=== PATIENT | male | born 1940 | race Two or more races ===

== ENCOUNTER 2024-04-11 19:55 | Inpatient (IN) | payer MEDICARE, OTHER ==
[~2024-04-11] VITALS: Ht 165.1 cm; Wt 76.0 kg
[2024-04-11] MEDS ORDERED: CEFEPIME 2GM/50ML NS 50 ML IV ONE (20:30)
[2024-04-11] MEDS: SODIUM CHLORIDE 0.9% 1,000 ML IV ONE ×2 (20:30→23:15)
[2024-04-11 21:13] LABS: Basophils # (auto) 0 10 ^3/uL (0-0.2); Basophils % (auto) 0.2 % (0.0-2.0); Eosinophils # (auto) 0 10 ^3/uL (0-0.8); Eosinophils % (auto) 0.1 % (0.0-7.0); Hematocrit 47.4 % (41.0-53.0); Lymphocytes # (auto) 0.8 10 ^3/uL (0.4-5.4); Lymphocytes % (auto) 4.4 % (10.0-50.0); Mean Corpuscular Hemoglobin 31.7 pg (28.0-32.0); Mean Corpuscular Hgb Conc. 31.6 g/dL (32.0-36.0); Mean Corpuscular Volume 100.4 fL (80.0-100.0); Monocytes # (auto) 1.3 10 ^3/uL (0-1.3); Monocytes % (auto) 7.5 % (0.0-12.0); Neutrophils % (auto) 87.8 % (37.0-80.0); Red Blood Cells 4.72 10^6/uL (4.5-5.90); Red Cell Distribution Width 15.5 % (11.8-14.3); White Blood Cell 17.1 10^3/uL (4.4-10.8)
[2024-04-11 21:22] LABS: Alanine Aminotransferase 12 U/L (7-40); Albumin 3.9 g/dL (3.2-4.8); Alkaline Phosphatase 118 U/L (46-116); Anion Gap 8 (5-15); Aspartate Aminotransferase < 8 U/L (13-40); BUN/Creatinine Ratio 11.8 (10.0-20.0); Bilirubin, Total 0.8 mg/dL (0.2-1.0); Blood Urea Nitrogen 14 mg/dL (9-23); Calcium 8.4 mg/dL (8.7-10.4); Carbon Dioxide 25 mmol/L (20-30); Chloride 109 mmol/L (98-107); Glucose 191 mg/dL (74-106); Potassium 3.4 mmol/L (3.5-5.1); Sodium 142 mmol/L (136-145); Total Protein 6.7 g/dL (5.7-8.2)
[2024-04-11] MEDS ORDERED: ALBUTEROL SULF 2.5 MG/0.5ML(0.5%) NEB SOLN NEB PRN (23:15)
[2024-04-11] MEDS ORDERED: ACETAMINOPHEN 325 MG TAB PO PRN (23:15)
[2024-04-11] MEDS ORDERED: DEXTROSE (50%) 50ML SYRG IV PRN (23:15)
[2024-04-11] MEDS ORDERED: MORPHINE SULFATE INJ 2 MG/ml SYRG IV PRN (23:15)
[2024-04-11] MEDS ORDERED: NITROGLYCERIN 0.4 MG SL TAB SL PRN (23:15)
[2024-04-11] MEDS ORDERED: ONDANSETRON HCL 4 MG/2 ML VIAL IV PRN (23:15)
[2024-04-11] MEDS: ACETAMINOPHEN IV 1000 MG/100ML (10MG/ML) IV STA (23:45)
[2024-04-11] MEDS: ONDANSETRON HCL 4 MG/2 ML VIAL IV ONE (23:45)
[2024-04-11 23:53] VITALS: BP 143/65; PULSE 86; RESP 20; TEMP 98.4; O2SAT 99
[2024-04-11] MEDS: CEFEPIME 2GM/50ML NS 50 ML IV ONE (23:57)
[2024-04-12] VITALS (8 sets, daily range): BP systolic 121–142; BP diastolic 62–66; PULSE 60–89; RESP 14–17; TEMP 98.4–99.1; O2SAT 91–99
[2024-04-12] MEDS: AZITHROMYCIN 250 MG TAB PO ONE (00:06)
[2024-04-12] MEDS: VANCOMYCIN 1GM/200ML 200 ML IV ONE (01:18)
[2024-04-12 04:45] LABS: Basophils # (auto) 0 10 ^3/uL (0-0.2); Basophils % (auto) 0.2 % (0.0-2.0); Eosinophils # (auto) 0 10 ^3/uL (0-0.8); Eosinophils % (auto) 0.1 % (0.0-7.0); Hematocrit 38.1 % (41.0-53.0); Hemoglobin 12.9 g/dL (13.5-17.5); Lymphocytes # (auto) 2.1 10 ^3/uL (0.4-5.4); Lymphocytes % (auto) 14.8 % (10.0-50.0); Mean Corpuscular Hemoglobin 32.8 pg (28.0-32.0); Mean Corpuscular Volume 96.4 fL (80.0-100.0); Monocytes # (auto) 0.9 10 ^3/uL (0-1.3); Monocytes % (auto) 6.6 % (0.0-12.0); Neutrophils # (auto) 11.2 10 ^3/uL (1.6-8.6); Neutrophils % (auto) 78.3 % (37.0-80.0); Red Blood Cells 3.95 10^6/uL (4.5-5.90); Red Cell Distribution Width 14.7 % (11.8-14.3); White Blood Cell 14.3 10^3/uL (4.4-10.8)
[2024-04-12 04:54] LABS: Alanine Aminotransferase 10 U/L (7-40); Albumin 3.3 g/dL (3.2-4.8); Alkaline Phosphatase 92 U/L (46-116); Anion Gap 7 (5-15); Aspartate Aminotransferase < 8 U/L (13-40); BUN/Creatinine Ratio 15.3 (10.0-20.0); Blood Urea Nitrogen 19 mg/dL (9-23); Calcium 7.7 mg/dL (8.7-10.4); Carbon Dioxide 27 mmol/L (20-30); Chloride 110 mmol/L (98-107); Glucose 152 mg/dL (74-106); Potassium 3.7 mmol/L (3.5-5.1); Sodium 144 mmol/L (136-145)
[2024-04-12 04:55] LABS: Bilirubin, Total 0.9 mg/dL (0.2-1.0); Total Protein 5.6 g/dL (5.7-8.2)
[2024-04-12 05:33] LABS: Urine Bacteria None Seen /hpf (None Seen)
[2024-04-12 05:54] LABS: Urine Blood Negative /uL (Negative); Urine Clarity Clear (Clear); Urine Color Yellow (Yellow); Urine Protein, UAD 2+ (Negative); Urine Specific Gravity 1.029 (1.001-1.035); Urine Urobilinogen Normal (Negative); Urine WBC 31 /hpf (0 - 3); Urine pH 5.5 (5.0-9.0)
[2024-04-12] MEDS: ACCU-CHEK COMFORT CURVE STRIP VI SCH (06:11)
[2024-04-12] MEDS: InsuLIN REG 1unit/0.01ml Soln (100units/ml) SC SCH (06:11)
[2024-04-12] MEDS: ENOXAPARIN SOD 40 MG/0.4 ML SYRINGE SC SCH (10:53)
[2024-04-12 14:33] LABS: Magnesium 1.2 mg/dL (1.6-2.6)
[2024-04-12] MEDS: hydrALAZINE HCL 20 MG/ML VL IV PRN (16:47)
[2024-04-12] MEDS: ISOSORBIDE MONONITRATE ER 60 MG TAB PO ONE (17:39)
[2024-04-12] MEDS: LOSARTAN POTASSIUM 50 MG TAB PO ONE (17:40)
[2024-04-12] MEDS: cefTRIAXone 1GM/50ML D5W 50 ML IV SCH (21:10)
[2024-04-12] MEDS: AZITHROMYCIN 500MG/ 250ML 250 ML IV SCH (21:45)
[2024-04-12] MEDS: METOPROLOL TARTRATE 25 MG TAB PO SCH (22:36)
[2024-04-12] MEDS: MAGNESIUM SULFATE 1GM/100ML 100 ML IV SCH (23:15)
[2024-04-13 04:40] LABS: Alanine Aminotransferase 11 U/L (7-40); Albumin 3.3 g/dL (3.2-4.8); Alkaline Phosphatase 89 U/L (46-116); Anion Gap 7 (5-15); Aspartate Aminotransferase 12 U/L (13-40); BUN/Creatinine Ratio 11.9 (10.0-20.0); Blood Urea Nitrogen 10 mg/dL (9-23); Calcium 7.7 mg/dL (8.7-10.4); Carbon Dioxide 27 mmol/L (20-30); Chloride 108 mmol/L (98-107); Glucose 144 mg/dL (74-106); Magnesium 2.3 mg/dL (1.6-2.6); Sodium 142 mmol/L (136-145)
[2024-04-13 04:41] LABS: Basophils # (auto) 0 10 ^3/uL (0-0.2); Basophils % (auto) 0.5 % (0.0-2.0); Bilirubin, Total 0.9 mg/dL (0.2-1.0); Eosinophils # (auto) 0.2 10 ^3/uL (0-0.8); Eosinophils % (auto) 2.2 % (0.0-7.0); Hematocrit 39.2 % (41.0-53.0); Hemoglobin 13.5 g/dL (13.5-17.5); Lymphocytes % (auto) 23.3 % (10.0-50.0); Mean Corpuscular Hemoglobin 33.2 pg (28.0-32.0); Mean Corpuscular Hgb Conc. 34.4 g/dL (32.0-36.0); Mean Corpuscular Volume 96.6 fL (80.0-100.0); Monocytes # (auto) 0.7 10 ^3/uL (0-1.3); Monocytes % (auto) 7.9 % (0.0-12.0); Neutrophils # (auto) 5.6 10 ^3/uL (1.6-8.6); Neutrophils % (auto) 66.1 % (37.0-80.0); Red Blood Cells 4.06 10^6/uL (4.5-5.90); Red Cell Distribution Width 14.5 % (11.8-14.3); White Blood Cell 8.5 10^3/uL (4.4-10.8)
[2024-04-13 05:35] VITALS: O2SAT 98
[2024-04-13 05:47] LABS: COVID19 ANTIGEN SOFIA FIA NEGATIVE (NEGATIVE); Rapid Influenza A Negative (Negative); Rapid Influenza B Negative (Negative)
[2024-04-13] MEDS: POTASSIUM CHL 20MEQ/100ML 100 ML IV SCH (07:15)
[2024-04-13] MEDS: CALCIUM GLUC 1,000mg/50ml-NS 50 ML IV ONE (07:15)
[2024-04-13] MEDS: dilTIAZem HCL 180MG ER CAP PO ONE (07:30)
[2024-04-13] MEDS: hydrALAZINE HCL 25 MG TAB PO ONE (07:30)
[2024-04-13] MEDS: LOSARTAN POTASSIUM 50 MG TAB PO SCH (10:03)
[2024-04-13] MEDS: ASPirin 81 mg TAB PO SCH (10:03)
[2024-04-13] MEDS: ISOSORBIDE MONONITRATE ER 60 MG TAB PO SCH (10:04)
[2024-04-13] MEDS: hydrALAZINE HCL 25 MG TAB PO SCH (13:25)
[2024-04-13 17:00] VITALS: BP 109/42; PULSE 69; RESP 20; TEMP 97.9; O2SAT 98
[2024-04-13 17:05] VITALS: BP 109/42; PULSE 69; RESP 20; TEMP 97.9; O2SAT 95
[2024-04-13 20:00] VITALS: PULSE 102
[2024-04-13 20:06] VITALS: O2SAT 94; O2SAT 98
[2024-04-13 21:00] VITALS: BP 132/61; PULSE 84; RESP 17; TEMP 98.6; O2SAT 93
[2024-04-13] MEDS: ATORVASTATIN 20 MG TAB PO SCH (22:03)
[2024-04-14] VITALS (9 sets, daily range): BP systolic 111–172; BP diastolic 54–80; PULSE 59–85; RESP 16–22; TEMP 97.4–98.4; O2SAT 94–100
[2024-04-14] MEDS ORDERED: MELA3TAB27 PO (02:28)
[2024-04-14] MEDS ORDERED: ATOR40TA52 PO (02:28)
[2024-04-14] MEDS ORDERED: HYDR-4298 PO (02:28)
[2024-04-14] MEDS ORDERED: PANT40TA2 PO (02:28)
[2024-04-14] MEDS ORDERED: TAMS0.4C36 PO (02:28)
[2024-04-14] MEDS ORDERED: FURO1TAB33 PO (02:28)
[2024-04-14] MEDS ORDERED: ASPI81CH59 PO (02:28)
[2024-04-14] MEDS ORDERED: FINA5TAB4 PO (02:28)
[2024-04-14] MEDS ORDERED: DILT120T16 PO (02:28)
[2024-04-14] MEDS ORDERED: INSUINJ37 SC (02:28)
[2024-04-14] MEDS ORDERED: DONE1TAB88 PO (02:28)
[2024-04-14] MEDS ORDERED: MET50T PO (02:28)
[2024-04-14] MEDS ORDERED: MEMA1TAB5 PO (02:28)
[2024-04-14] MEDS ORDERED: ISOS1TAB29 PO (02:28)
[2024-04-14] MEDS ORDERED: LOSA-535 PO (02:28)
[2024-04-14] MEDS ORDERED: METF-370 PO (02:28)
[2024-04-14] MEDS ORDERED: FERR325T20 PO (02:28)
[2024-04-14 05:11] LABS: Basophils # (auto) 0 10 ^3/uL (0-0.2); Basophils % (auto) 0.6 % (0.0-2.0); Eosinophils # (auto) 0.2 10 ^3/uL (0-0.8); Hematocrit 39.1 % (41.0-53.0); Hemoglobin 13.3 g/dL (13.5-17.5); Lymphocytes % (auto) 25.8 % (10.0-50.0); Mean Corpuscular Hemoglobin 32.7 pg (28.0-32.0); Mean Corpuscular Hgb Conc. 33.9 g/dL (32.0-36.0); Mean Corpuscular Volume 96.4 fL (80.0-100.0); Monocytes # (auto) 0.6 10 ^3/uL (0-1.3); Monocytes % (auto) 7.9 % (0.0-12.0); Neutrophils # (auto) 4.9 10 ^3/uL (1.6-8.6); Neutrophils % (auto) 62.7 % (37.0-80.0); Nucleated Red Blood Cells % 0.1 %; Red Blood Cells 4.06 10^6/uL (4.5-5.90); Red Cell Distribution Width 14.5 % (11.8-14.3); White Blood Cell 7.8 10^3/uL (4.4-10.8)
[2024-04-14 05:26] LABS: Alanine Aminotransferase 12 U/L (7-40); Albumin 3.3 g/dL (3.2-4.8); Alkaline Phosphatase 90 U/L (46-116); Anion Gap 6 (5-15); Aspartate Aminotransferase 14 U/L (13-40); BUN/Creatinine Ratio 7.9 (10.0-20.0); Bilirubin, Total 0.9 mg/dL (0.2-1.0); Blood Urea Nitrogen 6 mg/dL (9-23); Calcium 7.8 mg/dL (8.7-10.4); Carbon Dioxide 26 mmol/L (20-30); Chloride 111 mmol/L (98-107); Glucose 90 mg/dL (74-106); Potassium 3.7 mmol/L (3.5-5.1); Sodium 143 mmol/L (136-145); Total Protein 5.9 g/dL (5.7-8.2)
[2024-04-14] MEDS: POTASSIUM CHL 20 Meq TABLET PO ONE (09:08)
[2024-04-14] MEDS: dilTIAZem HCL 180MG ER CAP PO ONE (16:33)
[2024-04-14] MEDS: dilTIAZem 120MG ER CAP PO ONE (16:58)
[2024-04-15] VITALS (8 sets, daily range): BP systolic 113–170; BP diastolic 63–84; PULSE 64–81; RESP 17–22; TEMP 98.3–98.7; O2SAT 93–95
[2024-04-15] MEDS: hydrALAZINE HCL 20 MG/ML VL IV PRN (01:36)
[2024-04-15 05:49] LABS: Basophils # (auto) 0 10 ^3/uL (0-0.2); Basophils % (auto) 0.5 % (0.0-2.0); Eosinophils # (auto) 0.2 10 ^3/uL (0-0.8); Hematocrit 42.9 % (41.0-53.0); Hemoglobin 14.5 g/dL (13.5-17.5); Lymphocytes # (auto) 1.8 10 ^3/uL (0.4-5.4); Lymphocytes % (auto) 23.4 % (10.0-50.0); Mean Corpuscular Hemoglobin 32.7 pg (28.0-32.0); Mean Corpuscular Hgb Conc. 33.8 g/dL (32.0-36.0); Mean Corpuscular Volume 96.9 fL (80.0-100.0); Monocytes # (auto) 0.7 10 ^3/uL (0-1.3); Monocytes % (auto) 9.6 % (0.0-12.0); Neutrophils # (auto) 4.9 10 ^3/uL (1.6-8.6); Neutrophils % (auto) 63.5 % (37.0-80.0); Nucleated Red Blood Cells % 0.1 %; Red Blood Cells 4.42 10^6/uL (4.5-5.90); Red Cell Distribution Width 14.2 % (11.8-14.3); White Blood Cell 7.7 10^3/uL (4.4-10.8)
[2024-04-15 06:11] LABS: Alanine Aminotransferase 13 U/L (7-40); Alkaline Phosphatase 100 U/L (46-116); Anion Gap 7 (5-15); Calcium 8.6 mg/dL (8.7-10.4); Carbon Dioxide 26 mmol/L (20-30); Chloride 109 mmol/L (98-107); Glucose 115 mg/dL (74-106); Potassium 3.3 mmol/L (3.5-5.1); Sodium 142 mmol/L (136-145)
[2024-04-15 06:13] LABS: Albumin 3.6 g/dL (3.2-4.8); Aspartate Aminotransferase 15 U/L (13-40); BUN/Creatinine Ratio 6.8 (10.0-20.0); Blood Urea Nitrogen < 5 mg/dL (9-23)
[2024-04-15] MEDS ORDERED: dilTIAZem 120MG ER CAP PO SCH (10:00)
[2024-04-15] MEDS: POTASSIUM CHL 20 Meq TABLET PO ONE (11:13)
[2024-04-15] MEDS: dilTIAZem HCL 180MG ER CAP PO SCH (11:15)
[2024-04-15] MEDS ORDERED: CEFP200T15 PO (12:18)
[2024-04-15] MEDS ORDERED: AZITTAB PO (12:18)
== END 2024-04-15 16:10 | disposition home or self-care (01) | DRG 871 ==
LOC: ER 19:55 → TELE 23:27 → TELE-EAST 04-13 17:05
PROVIDERS: ADMIT Internal Medicine Pulmonary Disease; ATTEND Internal Medicine Pulmonary Disease
DX: A41.59 Other Gram-negative sepsis (principal); G93.41 Metabolic encephalopathy; J15.69 Pneumonia due to other Gram-negative bacteria; J96.01 Acute respiratory failure with hypoxia; J15.9 Unspecified bacterial pneumonia; A09 Infectious gastroenteritis and colitis, unspecified; E11.9 Type 2 diabetes mellitus without complications; E87.6 Hypokalemia; Z20.822 Contact with and (suspected) exposure to COVID-19; I16.0 Hypertensive urgency; D64.9 Anemia, unspecified; E83.51 Hypocalcemia; Z86.73 Personal history of transient ischemic attack (TIA), and cerebral infarction without residual deficits; Z95.0 Presence of cardiac pacemaker; Z79.899 Other long term (current) drug therapy; Z79.4 Long term (current) use of insulin
CPT/HCPCS: 36415; 70450; 71045; 74176; 80053; 80061; 81001; 82962; 83036; 83605; 83735; 83880; 84443; 84484; 85025; 87040; 87081; 87426; 87804; 93005; G0378; J0692; J1815; J3480

== ENCOUNTER 2024-11-28 10:16 | Inpatient (IN) | payer MEDICARE, OTHER ==
[~2024-11-28] VITALS: Ht 167.6 cm; Wt 86.5 kg
[~2024-11-28 10:16] MED LIST: ASPI81CH59 PO; ATOR40TA52 PO; AZITTAB PO; CEFP200T15 PO; CHOL20007 PO; CLON0.2D6 TOP; DILT-102 PO; DILT120T16 PO; DONE1TAB88 PO; FERR325T20 PO; FINA5TAB4 PO; FURO1TAB33 PO; HYDR100T10 PO; INSUINJ37 SC; ISOS1TAB29 PO; LOSA-535 PO; MELA3TAB27 PO; MEMA1TAB5 PO; MET50T PO; METF-370 PO; PANT40TA2 PO; TAMS0.4C39 PO
--- NOTE | 2024-11-28 10:46 | ED.PDOC ---
History of Present Illness HPI Comments This is an 84-year-old male who comes in with chief complaint of status post fall on Wednesday evening. According to the family, the patient went to the restroom and then fell down. They found the patient on the ground but they were not sure of the patient was hit their head. They placed the patient in bed and has been watching him for the last couple of days and now noticed that he has had a decreased appetite and seems to be more weak with decreased movement. Last night the patient started complaining of some low back pain as well as head pain. The patient denies any nausea, vomiting, diarrhea or fever. The patient was brought to the emergency department's by his daughter who is also the store management trainee. Chief Complaint: Fall Injury Time Seen by MD: 10:25 Reviewed Notes: Nurses Notes, Medications, Allergies (No allergies to medications) Allergies: Coded Allergies: NO KNOWN ALLERGIES (Unverified , 04/11/24) Home Meds Active Scripts Cefpodoxime Proxetil (Cefpodoxime Proxetil) 200 Mg Tab, 1 TAB PO BID for 2 Days, #4 TAB Prov:SONG CHAVEZ RESIDENT 04/15/24 Azithromycin (Zithromax Z-Kan) 250 Mg Tab, 250 MG PO DAILY for 2 Days, #2 TAB Prov:SONG CHAVEZ RESIDENT 04/15/24 Reported Medications Insulin Glargine (Lantus Solostar) 100 Unit/Ml Inj, 10 UNIT SC DAILY, INJ 04/14/24 Tamsulosin Hcl (Tamsulosin Hcl) 0.4 Mg Cap, 0.4 MG PO HS, CAP 04/14/24 Melatonin (KP MELATONIN) 3 Mg Tab, 3 MG PO HS, TAB 04/14/24 Donepezil Hydrochloride (DONEPEZIL HCL) 10 Mg Tab, 10 MG PO HS, TAB 04/14/24 Atorvastatin Calcium (ATORVASTATIN CALCIUM) 40 Mg Tab, 40 MG PO HS, TAB 04/14/24 Isosorbide Mononitrate (Isosorbide Mononitrate Er) 60 Mg Tab, 60 MG PO DAILY, TAB 04/14/24 Metoprolol Tartrate (LOPRESSOR TABLET) 50 Mg Tb, 50 MG PO BID, TAB 04/14/24 Hydralazine Hcl (Hydralazine Hcl) 100 Mg Tab, 100 MG PO TID, TAB 04/14/24 Losartan Potassium (Losartan Potassium) 100 Mg Tab, 100 MG PO DAILY, TAB 04/14/24 Diltiazem HCl (Diltiazem Hci ER) 120 Mg Tab, 180 MG PO DAILY, TAB 04/14/24 Pantoprazole Sodium Sesquihydr (Protonix) 40 Mg Tab, 40 MG PO DAILY, #30 TAB 04/14/24 Metformin Hydrochloride (Metformin Hcl) 500 Mg Tab, 500 MG PO DAILY, TAB 04/14/24 Memantine Hydrochloride (Memantine HCl) 10 Mg Tab, 10 MG PO BID, TAB 04/14/24 Furosemide (Lasix) 20 Mg Tb, 20 MG PO DAILY, TAB 04/14/24 Finasteride (Finasteride) 5 Mg Tab, 5 MG PO DAILY, TAB 04/14/24 Ferrous Sulfate (Ferosul) 325 Mg Tab, 1 TAB PO DAILY 04/14/24 Aspirin (Aspirin Low Dose) 81 Mg Chw, 1 TAB PO DAILY 04/14/24 Information Source: Patient, Relative (Child) Mode of Arrival: Wheelchair Severity: Moderate Timing: Days Duration: Since onset Prehospital treatment: None Location: Lower back pain and headache Associated signs and symptoms Generalized weakness with decreased appetite Past Medical History PAST MEDICAL HISTORY: CAD, CHF, CKF, CVA, Dementia, Depression, DM, GERD, High Lipids, HTN, Liver (Fatty liver), Denies Past Medical History (Other): BPH, hiatal hernia, sleep apnea Surgical History: Pacemaker Surgical History (Other): TURP, right shoulder surgery Family History Family History: Reviewed,noncontributory to illness Social History Smoker: Non-Smoker Alcohol: Denies ETOH Use Drugs: Denies Drug Use Lives In: Home Constitutional: reports: weakness; denies: chills, diaphoresis, fatigue, fever, malaise, sweats, others EENTM: denies: blurred vision, double vision, ear bleeding, ear discharge, ear drainage, ear pain, ear ringing, eye pain, eye redness, hearing loss, mouth pain, mouth swelling, nasal discharge, nose bleeding, nose congestion, nose pain, photophobia, tearing, throat pain, throat swelling, voice changes, others Respiratory: denies: cough, hemoptysis, orthopnea, SOB at rest, shortness of breath, SOB with excertion, stridor, wheezing, others Cardiovascular: denies: chest pain, dizzy spells, diaphoresis, Dyspnea on exertion, edema, irregular heart beat, left arm pain, lightheadedness, palpitations, PND, syncope, others Gastrointestinal: reports: poor appetite; denies: abdomen distended, abdominal pain, blood streaked bowels, constipated, diarrhea, dysphagia, difficulty swallowing, hematemesis, melena, nausea, poor fluid intake, rectal bleeding, rectal pain, vomiting, others Genitourinary: denies: burning, dysuria, flank pain, frequency, hematuria, incontinence, penile discharge, penile sore, pain, testicle pain, testicle swelling, urgency, others Neurological: reports: headache; denies: dizziness, fainting, left sided numbness, left sided weakness, numbness, paresthesia, pre-existing deficit, right sided numbness, right sided weakness, seizure, speech problems, tingling, tremors, weakness, others Musculoskeletal: reports: back pain; denies: gout, joint pain, joint swelling, muscle pain, muscle stiffness, neck pain, others Integumetry: denies: bruises, change in color, change in hair/nails, dryness, laceration, lesions, lumps, rash, wounds, others Allergic/Immunocompromised: denies: Difficulty Healing, Frequent Infections, Hives, Itching, others Hematologic/Lymphatic: denies: anemia, blood clots, easy bleeding, easy bruising, swollen glands, others Endocrine: denies: excessive hunger, excessive sweating, excessive thirst, excessive urination, flushing, intolerance to cold, intolerance to heat, unexplained weight gain, unexplained weight loss, others Psychiatric: denies: anxiety, bipolar disorder, depression, hopeless, panic disorder, schizophrenia, sleepless, suicidal, others Physical Exam General Appearance: Moderate Distress HEENT: Pale Conjuntivae (L), Pale Conjuntivae (R), Pharynx Normal, TMs Normal Neck: Full Range of Motion, Non-Tender, Normal, Normal Inspection Respiratory: Chest Non-Tender, Lungs Clear, No Accessory Muscle Use, No Respiratory Distress, Normal Breath Sounds Cardiovascular: No Edema, No JVD, No Murmur, No Gallop, Normal Peripheral Pulses, Regular Rate/Rhythm Breast Exam: Deferred Gastrointestinal: No Organomegaly, Non Tender, No Pulsatile Mass, Normal Bowel Sounds, Soft Genitalia: Deferred Pelvic: Deferred Rectal: Deferred Extremities: No calf tenderness, Normal capillary refill, Pedal edema Musculoskeletal : Apperance: Normal Neurologic: magneto repairer II-XII nml as Tested, Motor Weakness, Normal Affect, Normal Mood, No Sensory Deficits Cerebellar Function: Normal Reflexes: Normal Skin: Dry, Pallor, Warm Lymphatic: No Adenopathy Was a procedure done? Was a procedure done?: No Differential Dx Considerations may include: Generalized weakness, electrolyte imbalance, UTI, fracture, head trauma, brain bleed X-Ray, Labs, Meds, VS Vital Signs Date Time Temp Pulse Resp B/P (MAP) Pulse Ox O2 Delivery O2 Flow Rate FiO2 11/28/24 14:49 97.6 63 17 99/48 (65) 94 97.6 11/28/24 11:06 63 18 94 Room Air* 0 21 11/28/24 11:06 98.0 63 18 95/55 (68) 94 98.0 11/28/24 10:27 98.5 65 17 99/53 (68) 96 98.5 Lab Test 11/28/24 11:12 11/28/24 11:00 Range/Units Urine Color Yellow Yellow Urine Clarity Turbid H Clear Urine pH 5.0 5.0-9.0 Urine Specific [place] 1.020 1.001-1.035 Urine Protein 1+ H Negative Urine Ketones Negative Negative Urine Blood Negative Negative /uL Urine Nitrite Negative Negative Urine Bilirubin Negative Negative Urine Urobilinogen 2 H Negative mg/dL Urine Leukocyte Esterase 3+ Negative /uL Urine RBC 11 0 - 3 /hpf Urine WBC Clumps Present None Seen /hpf Urine Microscopic WBC 87 H 0-3 /HPF Urine Squamous Epithelial Cells Mod <5 /hpf Urine Bacteria Few H None Seen /hpf Urine Hyaline Casts Mod 0 - 2 /lpf Urine Mucus Few None Seen Urine Glucose Normal Normal mg/dL White Blood Count 8.8 4.4-10.8 10^3/uL Red Blood Count 4.10 L 4.5-5.90 10^6/uL Hemoglobin 13.3 L 13.5-17.5 g/dL Hematocrit 40.2 L 41.0-53.0 % Mean Corpuscular Volume 98.1 80.0-100.0 fL Mean Corpuscular Hemoglobin 32.4 H 28.0-32.0 pg Mean Corpuscular Hemoglobin Concent 33.1 32.0-36.0 g/dL Red Cell Distribution Width 13.8 11.8-14.3 % Platelet Count 193 140-450 10^3/uL Mean Platelet Volume 8.2 6.9-10.8 fL Neutrophils (%) (Auto) 68.6 37.0-80.0 % Lymphocytes (%) (Auto) 22.0 10.0-50.0 % Monocytes (%) (Auto) 7.0 0.0-12.0 % Eosinophils (%) (Auto) 2.0 0.0-7.0 % Basophils (%) (Auto) 0.4 0.0-2.0 % Neutrophils # (Auto) 6.1 1.6-8.6 10 ^3/uL Lymphocytes # (Auto) 1.9 0.4-5.4 10 ^3/uL Monocytes # (Auto) 0.6 0-1.3 10 ^3/uL Eosinophils # (Auto) 0.2 0-0.8 10 ^3/uL Basophils # (Auto) 0 0-0.2 10 ^3/uL Nucleated Red Blood Cells 0.0 % Sodium Level 142 136-145 mmol/L Potassium Level 3.8 3.5-5.1 mmol/L Chloride Level 105 98-107 mmol/L Carbon Dioxide Level 25 20-31 mmol/L Anion Gap 12 5-15 Blood Urea Nitrogen 38 H 9-23 mg/dL Creatinine 2.79 H 0.700-1.30 mg/dL Glomerular Filtration Rate Calc 22 >90 mL/min BUN/Creatinine Ratio 13.6 10.0-20.0 Serum Glucose 148 H 74-106 mg/dL Calcium Level 9.2 8.7-10.4 mg/dL Troponin I High Sensitivity 11 </=54 ng/L Current Medications Medications (Trade) Dose Ordered Sig/Nolan Route Start Time Stop Time Status Last Admin Sodium Chloride 500 ml @ 500 mls/hr Q1H ONCE IV 11/28/24 11:00 11/28/24 11:59 DC 11/28/24 11:48 IV Hep-Lock was established. The patient was blood pressure is 99/53 The patient was being given normal saline at a 500 cc bolus The x-ray of the LS spine shows: IMPRESSION: No definite CT evidence of acute fracture or dislocation of the bony lumbar spine. The CBC and chemistry panel are within normal limits except for a BUN of 38 and creatinine of 2.79 The urine test is positive for UTI The patient was given Levaquin 500 mg IV piggyback Images Reviewed?: Images reviewed and evaluated by me Time of 1ST Reevaluation: 10:46 Reevaluation 1ST: Improved Patient Education/Counseling: Diagnosis, Treatment, Prognosis Family Education/Counseling: No Family Present Departure 1 Departure Time of Disposition: 15:25 Impression: Primary Impression: UTI (urinary tract infection) Qualified Codes: N30.01 - Acute cystitis with hematuria Additional Impressions: Generalized weakness Intractable back pain Disposition: ADMITTED INPATIENT Admit to: Med Surg Condition: Fair Critical Care Note Critical Care Time?: No Stability Stability form required: Yes Unstable for transfer: ED Physician Assesment (Clinical assesment) Heart Score Heart Score: Heart Score Response (Comments) Value History N/A 0 EKG N/A 0 Age N/A 0 Risk Factors N/A 0 Troponin N/A 0 Total 0 JUDY LYNN MD Nov 28, 2024 10:46
[2024-11-28 11:06] VITALS: PULSE 63; RESP 18; O2SAT 94
--- NOTE | 2024-11-28 11:08 | DVH ---
EXAM: CT HEAD WITHOUT CONTRAST INDICATION: fall, trauma, pain TECHNIQUE: CT of the head without intravenous contrast. Radiation Dose : 1. Head: CT Dose: CTDI volume is 57.48 mGy. Dose-length product is 1075.27 mGy*cm The dose indicators for CT are the volume Computed Tomography (CT) Dose Index (CTDIvol) and the Dose Length Product (DLP), and are measured in units of mGy and mGy-cm, respectively. These indicators are not patient dose, but values generated from the CT scanner acquisition factors. The report includes radiation exposure data for exposures received during this examination. COMPARISON: CT HEAD WITHOUT CONTRAST on DOS: 04/12/24 FINDINGS: There is no evidence of acute intracranial hemorrhage, extra-axial collection, mass effect, midline s hift, herniation or hydrocephalus. The ventricles, sulci and cisterns are age appropriate. The ramos-white differentiation is intact. Patchy periventricular and subcortical white matter hypoattenuation is nonspecific but may be related to small vessel ischemic disease. The visualized paranasal sinuses and mastoid air cells are clear. The surrounding soft tissues and osseous structures are unremarkable. IMPRESSION: No acute intracranial abnormality. Radiation optimization: All CT scans at this facility use at least one of these dose optimization jasmina hniques: automated exposure control mA and/or kV adjustment per patient size (includes targeted exam s where dose is matched to clinical indication) or iterative reconstruction.
[2024-11-28 11:20] LABS: Chloride 105 mmol/L (98-107); Potassium 3.8 mmol/L (3.5-5.1); Sodium 142 mmol/L (136-145)
[2024-11-28 11:21] LABS: Anion Gap 12 (5-15); Basophils # (auto) 0 10 ^3/uL (0-0.2); Basophils % (auto) 0.4 % (0.0-2.0); Carbon Dioxide 25 mmol/L (20-31); Eosinophils # (auto) 0.2 10 ^3/uL (0-0.8); Hematocrit 40.2 % (41.0-53.0); Hemoglobin 13.3 g/dL (13.5-17.5); Lymphocytes # (auto) 1.9 10 ^3/uL (0.4-5.4); Mean Corpuscular Hemoglobin 32.4 pg (28.0-32.0); Mean Corpuscular Hgb Conc. 33.1 g/dL (32.0-36.0); Mean Corpuscular Volume 98.1 fL (80.0-100.0); Monocytes # (auto) 0.6 10 ^3/uL (0-1.3); Neutrophils # (auto) 6.1 10 ^3/uL (1.6-8.6); Neutrophils % (auto) 68.6 % (37.0-80.0); Platelet Count (auto) 193 10^3/uL (140-450); Red Cell Distribution Width 13.8 % (11.8-14.3); White Blood Cell 8.8 10^3/uL (4.4-10.8)
[2024-11-28 11:22] LABS: Calcium 9.2 mg/dL (8.7-10.4)
[2024-11-28 11:26] LABS: BUN/Creatinine Ratio 13.6 (10.0-20.0)
[2024-11-28 11:28] LABS: Blood Urea Nitrogen 38 mg/dL (9-23); Glucose 148 mg/dL (74-106)
--- NOTE | 2024-11-28 11:28 | DVH ---
EXAM: CT LS SPINE WO CONTRAST HISTORY: fall, trauma, pain COMPARISON: None CTDIvol 36.5 mGy, DLP 1111.2 mGy*cm. TECHNIQUE: Multiple axial CT images of the spine were obtained using bone algorithm. Axial and coron al reformatting was done. Bone and soft tissue windows were reviewed. FINDINGS: No CT evidence of definite acute fracture, spinal dislocation, or significant appearing acute subluxa tion is seen. The visualized paraspinal soft tissues are grossly unremarkable. Osteopenia. Degenerative disc bulge at L4-L5 and L5-S1. Moderate canal stenosis at L3-L4. Multilevel degenerativ e changes of the spine. IMPRESSION: No definite CT evidence of acute fracture or dislocation of the bony lumbar spine.
[2024-11-28] MEDS: SODIUM CHLORIDE 0.9% 500 ML IV ONE (11:48)
[2024-11-28 12:21] LABS: Urine Bacteria FEW /hpf (None Seen); Urine Blood Negative /uL (Negative); Urine Clarity Turbid (Clear); Urine Color Yellow (Yellow); Urine Hyaline Cast MOD /lpf (0 - 2); Urine Mucus FEW (None Seen); Urine Protein, UAD 1+ (Negative); Urine Squamous Epithelial Cell MOD /hpf (<5); Urine Urobilinogen 2 mg/dL (Negative); Urine WBC 87 /HPF (0-3); Urine WBC Clumps PRESENT /hpf (None Seen)
--- NOTE | 2024-11-28 15:29 | DVHHPRES ---
History of Present Illness Resident Creating Document: RISA LLOYD RESIDENT History of Present Illness This is a German-speaking 84-year-old male with past medical history of diabetes mellitus type 2, coronary artery disease, hypertension, hyperlipidemia, Alzheimer's dementia, multiple CVAs with right-sided the showed-last 1 2 years back, questionable CHF, hiatal hernia,. Steatosis, GERD, osteoporosis and depression, CKD stage 2 who was brought to the ER by her daughter who with a chief complaint of a mechanical fall on 11/26. Per daughter, patient has dementia at baseline. Patient is alert but only oriented to name which is baseline. Daughter reports with the patient has a fall when he slipped while going to the restroom. Denies any chest pain/ lightheadedness/dizziness/palpitations. Past medical history: See above Home medications: Furosemide 20 mg, finasteride 5 mg, aspirin 81 mg, diltiazem ER 180 mg, losartan potassium 100 mg daily, hydralazine 100 mg, isosorbide mononitrate ER 60 mg, metoprolol 50 mg, metformin 500 mg, pantoprazole 40 mg, Lantus 12 units once daily, memantine 10 mg, iron sulfate 325 mg vitamin D3 PCP: In [place] Patient seen and examined at the bedside. Patient reports lower back pain. Past Medical History diabetes mellitus type 2, coronary artery disease, hypertension, hyperlipidemia, Alzheimer's dementia, multiple CVAs with right-sided the showed-last 1 2 years back, questionable CHF, hiatal hernia,. Steatosis, GERD, osteoporosis and depression, CKD stage 2 Family History: None Smoke: No ALCOHOL: none Drugs: None Lives: with Family Review of Systems Allergies: Coded Allergies: NO KNOWN ALLERGIES (Unverified , 04/11/24) Exam Vital Signs Vital Signs Date Time Temp Pulse Resp B/P (MAP) Pulse Ox O2 Delivery O2 Flow Rate FiO2 11/28/24 14:49 97.6 63 17 99/48 (65) 94 97.6 11/28/24 11:06 Room Air* 0 21 Exam Patient sitting in wheelchair, no acute distress General: Well-built, afebrile, palor, mucosae are moist Cardiovascular: Regular S1 and S2. No murmurs, gallops or rubs. No JVD elevation. Bilateral +1 pedal edema Respiratory: Normal B/L air entry on room air. Clear lung sounds on auscultation Abdomen: Soft, nontender, nondistended, normoactive bowel sounds, no rebound tenderness, no organomegaly, no masses Genitourinary: Deferred MSK/skin: Mobilizes 4 limbs. Skin is dry and warm. Bilateral hips have purplish bruising Neurological: No motor, no sensitive deficits, normal speech. Pupils are isocoric and reactive. Psych/Mental Status: A/Ox3 Labs/Xrays Labs Test 11/28/24 11:12 11/28/24 11:00 Range/Units Urine Color Yellow Yellow Urine Clarity Turbid H Clear Urine pH 5.0 5.0-9.0 Urine Specific [place] 1.020 1.001-1.035 Urine Protein 1+ H Negative Urine Ketones Negative Negative Urine Blood Negative Negative /uL Urine Nitrite Negative Negative Urine Bilirubin Negative Negative Urine Urobilinogen 2 H Negative mg/dL Urine Leukocyte Esterase 3+ Negative /uL Urine RBC 11 0 - 3 /hpf Urine WBC Clumps Present None Seen /hpf Urine Microscopic WBC 87 H 0-3 /HPF Urine Squamous Epithelial Cells Mod <5 /hpf Urine Bacteria Few H None Seen /hpf Urine Hyaline Casts Mod 0 - 2 /lpf Urine Mucus Few None Seen Urine Glucose Normal Normal mg/dL White Blood Count 8.8 4.4-10.8 10^3/uL Red Blood Count 4.10 L 4.5-5.90 10^6/uL Hemoglobin 13.3 L 13.5-17.5 g/dL Hematocrit 40.2 L 41.0-53.0 % Mean Corpuscular Volume 98.1 80.0-100.0 fL Mean Corpuscular Hemoglobin 32.4 H 28.0-32.0 pg Mean Corpuscular Hemoglobin Concent 33.1 32.0-36.0 g/dL Red Cell Distribution Width 13.8 11.8-14.3 % Platelet Count 193 140-450 10^3/uL Mean Platelet Volume 8.2 6.9-10.8 fL Neutrophils (%) (Auto) 68.6 37.0-80.0 % Lymphocytes (%) (Auto) 22.0 10.0-50.0 % Monocytes (%) (Auto) 7.0 0.0-12.0 % Eosinophils (%) (Auto) 2.0 0.0-7.0 % Basophils (%) (Auto) 0.4 0.0-2.0 % Neutrophils # (Auto) 6.1 1.6-8.6 10 ^3/uL Lymphocytes # (Auto) 1.9 0.4-5.4 10 ^3/uL Monocytes # (Auto) 0.6 0-1.3 10 ^3/uL Eosinophils # (Auto) 0.2 0-0.8 10 ^3/uL Basophils # (Auto) 0 0-0.2 10 ^3/uL Nucleated Red Blood Cells 0.0 % Sodium Level 142 136-145 mmol/L Potassium Level 3.8 3.5-5.1 mmol/L Chloride Level 105 98-107 mmol/L Carbon Dioxide Level 25 20-31 mmol/L Anion Gap 12 5-15 Blood Urea Nitrogen 38 H 9-23 mg/dL Creatinine 2.79 H 0.700-1.30 mg/dL Glomerular Filtration Rate Calc 22 >90 mL/min BUN/Creatinine Ratio 13.6 10.0-20.0 Serum Glucose 148 H 74-106 mg/dL Calcium Level 9.2 8.7-10.4 mg/dL Troponin I High Sensitivity 11 </=54 ng/L Assessment/Plan Assessment/Plan Mechanical fall Hip bruising secondary to above Lumbar spine CT showed No definite CT evidence of acute fracture or dislocation of the bony lumbar spine. Head CT unremarkable IV fluids and pain control Hip x-ray pending Acute cystitis IV ceftriaxone 1 g daily Urine bacterial culture ordered ALEXUS, likely vasomotor mediated superimposed on CKD IV fluids administered Urine studies pending Diabetes mellitus type 2-hemoglobin A1c pending Mild ISS Coronary artery disease Hypertension Hyperlipidemia Questionable CHF Holding antihypertensive at this point given hypotension BNP pending History of Alzheimer's dementia Continue home medication memantine Multiple CVAs in the past Continue aspirin atorvastatin daily History of hepatic steatosis Monitor History of GERD Pantoprazole 40 mg p.o. daily Goals of care discussed with patient and daughter in the ER, full code status Plan discussed with patient and daughter in the ER in which all questions have been answered Case discussed with Dr. Jeff Plan discussed with: Patient, Daughter (At the bedside) My Orders Orders - RISA LLOYD RESIDENT Procedure Category Date Status Time Sodium Chloride 0.9% PHA 11/28/24 Logged 15:00 Admit ADMIT 11/28/24 Transmitted 15:06 Date of Service: Nov 28, 2024 Billing Provider: RY JEFF MD Common Visit Codes: 22830-[id number] INP/OBS CARE (HIGH) Secondary Visit Codes: 74778-[id number] CARE PLAN 30 MINUTES GABINO,RISA RESIDENT Nov 28, 2024 15:29 RY JEFF MD Nov 28, 2024 17:25
[2024-11-28] MEDS ORDERED: DEXTROSE (50%) 50ML SYRG IV PRN (15:45)
[2024-11-28 16:21] LABS: Albumin 4.1 g/dL (3.2-4.8); Bilirubin, Direct 0.3 mg/dL (<0.3); Bilirubin, Total 0.8 mg/dL (0.2-1.0); Magnesium 1.9 mg/dL (1.6-2.6); Total Protein 6.6 g/dL (5.7-8.2)
[2024-11-28] MEDS: SODIUM CHLORIDE 0.9% 1,000 ML IV ONE (16:34)
[2024-11-28] MEDS: ASPirin 81 mg TAB PO ONE (16:34)
[2024-11-28] MEDS: cefTRIAXone 1GM/50ML D5W 50 ML IV ONE (16:34)
--- NOTE | 2024-11-28 16:39 | DVH ---
CLINICAL INDICATION: bruise and fall TECHNIQUE: XY R HIP COMPLETE XRAY Comparison: None FINDINGS/IMPRESSION: : There is no evidence of acute fracture or dislocation. Soft tissues are unremarkable. Moderate degenerative changes of bilateral hips.
[2024-11-28 17:00] LABS: Partial Thromboplastin Time 29.3 SEC (24.5-34.5); Prothrombin Time 10.6 sec (9.3-11.8)
[2024-11-28] MEDS: InsuLIN REG 1unit/0.01ml Soln (100units/ml) SC SCH (17:00)
[2024-11-28] MEDS: ACCU-CHEK COMFORT CURVE STRIP VI SCH (17:00)
[2024-11-28 19:15] VITALS: PULSE 63; RESP 12; O2SAT 95
[2024-11-28 20:28] LABS: Creatinine, Urine 102.46 mg/dL (30.0-125.0); Urine Protein/Creatinine Ratio 0.33
[2024-11-28 21:09] LABS: Amphetamine Screen, Urine Neg (NEGATIVE); Barbiturate Scree,Urine Neg (NEGATIVE); Benzodiazephine Screen, Urine Neg (NEGATIVE); Cannabinoid Screen, Urine Neg (NEGATIVE); Cocaine Screen, Urine Neg (NEGATIVE); Opiate Scree,Urine Neg (NEGATIVE); Phencyclidine Screen, Urine Neg (NEGATIVE)
[2024-11-28 22:50] VITALS: BP 143/75; PULSE 83; RESP 15; TEMP 98.4; O2SAT 99
[2024-11-28 23:32] VITALS: PULSE 83; RESP 15; O2SAT 99
[2024-11-28] MEDS: ATORVASTATIN 20 MG TAB PO SCH (23:46)
[2024-11-29] VITALS (9 sets, daily range): BP systolic 143–171; BP diastolic 42–83; PULSE 60–88; RESP 15–20; TEMP 97.5–98.9; O2SAT 92–100
[2024-11-29 07:14] LABS: Basophils # (auto) 0 10 ^3/uL (0-0.2); Basophils % (auto) 0.5 % (0.0-2.0); Eosinophils # (auto) 0.2 10 ^3/uL (0-0.8); Eosinophils % (auto) 3.1 % (0.0-7.0); Hematocrit 36.1 % (41.0-53.0); Hemoglobin 12.5 g/dL (13.5-17.5); Lymphocytes # (auto) 1.4 10 ^3/uL (0.4-5.4); Mean Corpuscular Hemoglobin 33.9 pg (28.0-32.0); Mean Corpuscular Hgb Conc. 34.7 g/dL (32.0-36.0); Mean Corpuscular Volume 97.7 fL (80.0-100.0); Monocytes # (auto) 0.6 10 ^3/uL (0-1.3); Neutrophils % (auto) 69.4 % (37.0-80.0); Nucleated Red Blood Cells % 0.1 %; Platelet Count (auto) 170 10^3/uL (140-450); Red Blood Cells 3.69 10^6/uL (4.5-5.90); Red Cell Distribution Width 13.9 % (11.8-14.3); White Blood Cell 7.2 10^3/uL (4.4-10.8)
[2024-11-29 08:00] LABS: Alkaline Phosphatase 106 U/L (46-116); Anion Gap 10 (5-15); Aspartate Aminotransferase 13 U/L (13-40); Carbon Dioxide 26 mmol/L (20-31); Chloride 110 mmol/L (98-107); Glucose 134 mg/dL (74-106); Potassium 3.9 mmol/L (3.5-5.1); Sodium 146 mmol/L (136-145)
[2024-11-29 08:01] LABS: Alanine Aminotransferase 18 U/L (7-40); Albumin 3.5 g/dL (3.2-4.8); Bilirubin, Total 0.7 mg/dL (0.2-1.0); Calcium 8.8 mg/dL (8.7-10.4); Total Protein 5.7 g/dL (5.7-8.2)
[2024-11-29 08:49] LABS: BUN/Creatinine Ratio 18.6 (10.0-20.0); Blood Urea Nitrogen 33 mg/dL (9-23)
[2024-11-29] MEDS: ENOXAPARIN SOD 30 MG/0.3 ML SYRINGE SC SCH (09:57)
[2024-11-29] MEDS: ASPirin 81 mg TAB PO SCH (09:57)
[2024-11-29] MEDS: cefTRIAXone 1GM/50ML D5W 50 ML IV SCH (09:58)
[2024-11-29] MEDS ORDERED: ENOXAPARIN SOD 40 MG/0.4 ML SYRINGE SC SCH (10:00)
[2024-11-29] MEDS: hydrALAZINE HCL 20 MG/ML VL IV PRN (13:48)
--- NOTE | 2024-11-29 16:00 | DVHPN2 ---
Subjective Left lower extremity pain; Lao-speaking; daughter translated Reviewed: Care Plan, H&P, Labs, Medications, Previous Orders, Radiology Changes from previous H/P or p: No Changes Objective Vitals Vital Signs Date Time Temp Pulse Resp B/P (MAP) Pulse Ox O2 Delivery O2 Flow Rate FiO2 11/29/24 13:48 175/71 11/29/24 13:30 98.1 60 18 100 98.1 11/29/24 08:00 Room Air* 0 21 Intake/Output Intake and Output 11/29/24 07:00 Intake Total 1550 ml Output Total 125 ml Balance 1425 ml Intake Oral 0 ml IV Total 1550 ml Output Urine Total 125 ml General Appearance: Alert, Cooperative, No acute distress, Other (Oriented to self and person) HEENT: Atraumatic Lungs: Other (Decreased air entry bilateral with scattered crackles and wheezing) Cardiovascular: Regular rate, Normal S1, Normal S2 Abdomen: Normal bowel sounds, Soft, No tenderness Neuro: Normal speech, Cranial nerves 3-12 NL, Other (Oriented to self and person) Medications Current Medications Medications Dose Ordered Sig/Nolan Route Start Time Stop Time Status Last Admin Dose Admin Ceftriaxone Sodium 50 ml @ 100 mls/hr DAILY@09 IV 11/29/24 09:00 11/29/24 09:58 100 MLS/HR Diagnostic Test (Pha) 1 strip ACHS 11/28/24 17:00 11/29/24 11:21 1 STRIP Insulin Human Regular ACHS SC 11/28/24 17:00 11/28/24 23:45 3 UNITS Dextrose 50 ml UD PRN IV 11/28/24 15:45 Aspirin 81 mg DAILY PO 11/29/24 10:00 11/29/24 09:57 81 MG Atorvastatin Calcium 40 mg HS PO 11/28/24 22:00 11/28/24 23:46 40 MG Enoxaparin Sodium 40 mg DAILY SC 11/29/24 10:00 UNV Metoprolol Tartrate 50 mg BID PO 11/29/24 22:00 Hydralazine HCl 100 mg TID PO 11/29/24 14:00 Isosorbide Mononitrate 60 mg DAILY PO 11/30/24 10:00 Hydralazine HCl 10 mg Q6HP PRN IV 11/29/24 13:30 11/29/24 13:48 10 MG Enoxaparin Sodium 40 mg DAILY SC 11/30/24 10:00 Laboratory Results Laboratory Tests 11/29/24 06:06 Chemistry Test 11/29/24 06:06 Albumin 3.5 g/dL (3.2-4.8) Calcium Level 8.8 mg/dL (8.7-10.4) Total Protein 5.7 g/dL (5.7-8.2) Coagulation Test 11/28/24 16:22 Prothrombin Time 10.6 sec (9.3-11.8) Prothrombin Time INR 1.00 (0.9-1.15) Activated Partial Thromboplast Time 29.3 SEC (24.5-34.5) LFT Test 11/29/24 06:06 Alanine Aminotransferase (ALT) 18 U/L (7-40) Alkaline Phosphatase 106 U/L (46-116) Aspartate Amino Transferase (AST) 13 U/L (13-40) Total Bilirubin 0.7 mg/dL (0.2-1.0) Urinalysis Test 11/28/24 11:12 11/28/24 19:27 Urine Color Yellow (Yellow) Urine Clarity Turbid (Clear) H Urine pH 5.0 (5.0-9.0) Urine Specific [place] 1.020 (1.001-1.035) Urine Protein 1+ (Negative) H Urine Ketones Negative (Negative) Urine Blood Negative /uL (Negative) Urine Nitrite Negative (Negative) Urine Bilirubin Negative (Negative) Urine Urobilinogen 2 mg/dL (Negative) H Urine Leukocyte Esterase 3+ /uL (Negative) Urine RBC 11 /hpf (0 - 3) Urine WBC Clumps Present /hpf (None Seen) Urine Microscopic WBC 87 /HPF (0-3) H Urine Squamous Epithelial Cells Mod /hpf (<5) Urine Bacteria Few /hpf (None Seen) H Urine Hyaline Casts Mod /lpf (0 - 2) Urine Mucus Few (None Seen) Urine Glucose Normal mg/dL (Normal) Urine Creatinine 102.46 mg/dL (30.0-125.0) Urine Protein/Creatinine Ratio 0.33 Urine Sodium 72 mmol/L (40-220) Urine Total Protein 34.0 mg/dL (1-14) H Microbiology Microbiology Date/Time Source Procedure Growth Status 11/28/24 11:12 Voided Urine Urine Culture - Preliminary Resulted Labs and/or images reviewed: Labs reviewed by me, Image(s) reviewed by me Assessment/Plan Assessment/Plan Covering: #Acute hypoxic respiratory failure due to suspected aspiration pneumonia and suspected pulmonary congestion; continue oxygen therapy as indicated; continue IV antibiotics; to keep NPO until further evaluation for swallowing; ordered and reviewed chest x-ray; continue monitoring #Acute toxic/metabolic encephalopathy in the setting of suspected sepsis and in the setting of Alzheimer's dementia; no behavioral changes; reviewed head CT; stopped home gabapentin and memantine; continue monitoring #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 as per the patient's daughter; no behavioral changes; resume aspirin and statin but to hold memantine; continue monitoring #Suspected sepsis due to suspected aspiration pneumonia; continue IV antibiotics; reviewed urinalysis and urine culture; continue monitoring #Status post mechanical fall; no fracture found; reviewed the available imaging studies; fall precautions; continue monitoring #ALEXUS in the setting of suspected sepsis; most likely vasomotor nephropathy; avoid nephrotoxic agents; continue monitoring #Suspected aspiration pneumonia; reviewed chest x-ray; to continue IV antibiotics; swallow evaluation; continue monitoring #Suspected pulmonary congestion; reviewed chest x-ray; to start IV diuretics; continue monitoring #Hypertensive kidney and heart disease; hold home losartan due to ALEXUS; resume the rest of home antihypertensive medications; continue monitoring #Diabetes mellitus type 2 with hemoglobin A1c of 6.8%; hold home antidiabetic medications; continue insulin sliding scale with hypoglycemia protocol; continue monitoring #Overweight; counseled the patient on the importance of adopting healthy lifestyle with diet and exercise order to lose weight; continue #MICHELLE; continue CPAP; continue monitoring Goals of care discussed with the patient's daughter for 20 minutes; full code for now until reviewing the previously documented advance directives Late Entry. This medical document was created using an electronic medical record system with computerized dictation system. Although this document has been carefully reviewed, there might still be some phonetic and typographical errors. These areas are purely typographical due to imperfections of the software programs, and do not reflect any compromise in the patient's medical care. Plan discussed with: Patient, Daughter, Other (Nurse) My Orders Orders - INDIRA POOL MD Procedure Category Date Status Time Complete Blood Count LAB 11/30/24 Verified 04:00 Basic Metabolic Panel LAB 11/30/24 Verified 04:00 Metoprolol Tartrate PHA 11/29/24 In Process Tablet (Lopressor Ta 22:00 Hydralazine Hcl PHA 11/29/24 In Process Tablet (Apresoline 14:00 Isosorbide PHA 11/30/24 In Process Mononitrate Tablet 10:00 Hydralazine Injection PHA 11/29/24 In Process (Apresoline Inject 13:30 Date of Service: Nov 29, 2024 Billing Provider: INDIRA POOL MD Common Visit Codes: [id number] INP/OBS CARE(HIGH) Secondary Visit Codes: [id number] CARE PLAN 30 MINUTES (20 minutes) INDIRA POOL MD Nov 29, 2024 16:00
--- NOTE | 2024-11-29 16:36 | DVH ---
EXAM: XR Chest, 1 View CLINICAL INDICATION: De-sating. Thank You! TECHNIQUE: Frontal view of the chest. COMPARISON: XY CHEST PORTABLE on DOS: 04/11/24 FINDINGS: LUNGS AND PLEURAL SPACES: Mild congestive heart failure. No consolidation. No pneumothorax. HEART: Unremarkable. No cardiomegaly. MEDIASTINUM: Unremarkable. Normal mediastinal contour. BONES/JOINTS: Unremarkable. No acute fracture. TUBES, LINES AND DEVICES: Left-sided cardiac pacemaker. OTHER FINDINGS: . IMPRESSION: Mild congestive heart failure.
[2024-11-29] MEDS: hydrALAZINE HCL 25 MG TAB PO SCH (17:15)
[2024-11-29] MEDS: AZITHROMYCIN 500MG/ 250ML 250 ML IV ONE (17:22)
[2024-11-29] MEDS: METOPROLOL TARTRATE 50 MG TAB PO SCH (22:37)
[2024-11-29] MEDS: FUROSEMIDE 40 MG/4 ML VIAL IV ONE (22:45)
[2024-11-30] VITALS (8 sets, daily range): BP systolic 105–168; BP diastolic 34–67; PULSE 59–94; RESP 16–19; TEMP 98.2–98.9; O2SAT 94–99
[2024-11-30 06:07] LABS: Basophils # (auto) 0 10 ^3/uL (0-0.2); Basophils % (auto) 0.6 % (0.0-2.0); Eosinophils # (auto) 0.2 10 ^3/uL (0-0.8); Eosinophils % (auto) 2.8 % (0.0-7.0); Hematocrit 38.6 % (41.0-53.0); Hemoglobin 12.9 g/dL (13.5-17.5); Lymphocytes # (auto) 1.3 10 ^3/uL (0.4-5.4); Lymphocytes % (auto) 16.9 % (10.0-50.0); Mean Corpuscular Hemoglobin 33.2 pg (28.0-32.0); Mean Corpuscular Hgb Conc. 33.5 g/dL (32.0-36.0); Mean Corpuscular Volume 98.9 fL (80.0-100.0); Monocytes # (auto) 0.6 10 ^3/uL (0-1.3); Monocytes % (auto) 8.2 % (0.0-12.0); Neutrophils # (auto) 5.4 10 ^3/uL (1.6-8.6); Neutrophils % (auto) 71.5 % (37.0-80.0); Nucleated Red Blood Cells % 0.1 %; Platelet Count (auto) 183 10^3/uL (140-450); Red Cell Distribution Width 13.7 % (11.8-14.3); White Blood Cell 7.6 10^3/uL (4.4-10.8)
[2024-11-30 06:08] LABS: Anion Gap 9 (5-15); Carbon Dioxide 25 mmol/L (20-31); Potassium 3.8 mmol/L (3.5-5.1)
[2024-11-30 06:14] LABS: BUN/Creatinine Ratio 18.1 (10.0-20.0); Blood Urea Nitrogen 23 mg/dL (9-23); Glucose 102 mg/dL (74-106)
[2024-11-30 06:17] LABS: Chloride 112 mmol/L (98-107); Sodium 146 mmol/L (136-145)
--- NOTE | 2024-11-30 09:14 | DVHPN2 ---
Subjective Decreasing left lower extremity pain; off oxygen therapy septic Bruneian- speaking; staff translated Reviewed: Care Plan, H&P, Labs, Medications, Previous Orders, Radiology Changes from previous H/P or p: Changes Objective Vitals Vital Signs Date Time Temp Pulse Resp B/P (MAP) Pulse Ox O2 Delivery O2 Flow Rate FiO2 11/30/24 08:09 98.3 60 16 167/61 (96) 99 98.3 11/29/24 20:00 Nasal Cannula* 2 28 Intake/Output Intake and Output 11/30/24 07:00 Intake Total 490 ml Output Total 801 ml Balance -311 ml Intake Oral 440 ml IV Total 50 ml Output Urine Total 800 ml Stool Total 1 ml General Appearance: Alert, Cooperative, No acute distress, Other (Oriented to self and person) HEENT: Atraumatic Lungs: Other (Decreased air entry bilateral with scattered crackles and wheezing) Cardiovascular: Regular rate, Normal S1, Normal S2 Abdomen: Normal bowel sounds, Soft, No tenderness Neuro: Normal speech, Cranial nerves 3-12 NL, Other (Oriented to self and person) Medications Current Medications Medications Dose Ordered Sig/Nolan Route Start Time Stop Time Status Last Admin Dose Admin Ceftriaxone Sodium 50 ml @ 100 mls/hr DAILY@09 IV 11/29/24 09:00 11/30/24 08:33 100 MLS/HR Diagnostic Test (Pha) 1 strip ACHS 11/28/24 17:00 11/30/24 06:06 1 STRIP Insulin Human Regular ACHS SC 11/28/24 17:00 11/29/24 22:37 2 UNITS Dextrose 50 ml UD PRN IV 11/28/24 15:45 Aspirin 81 mg DAILY PO 11/29/24 10:00 11/29/24 09:57 81 MG Atorvastatin Calcium 40 mg HS PO 11/28/24 22:00 11/29/24 22:36 40 MG Enoxaparin Sodium 40 mg DAILY SC 11/29/24 10:00 UNV Metoprolol Tartrate 50 mg BID PO 11/29/24 22:00 11/29/24 22:37 50 MG Hydralazine HCl 100 mg TID PO 11/29/24 14:00 11/30/24 06:06 100 MG Isosorbide Mononitrate 60 mg DAILY PO 11/30/24 10:00 Hydralazine HCl 10 mg Q6HP PRN IV 11/29/24 13:30 11/29/24 13:48 10 MG Enoxaparin Sodium 40 mg DAILY SC 11/30/24 10:00 Azithromycin 250 ml @ 125 mls/hr DAILY IV 11/30/24 10:00 Furosemide 40 mg DAILY IV 11/30/24 10:00 Laboratory Results Laboratory Tests 11/30/24 04:20 Chemistry Test 11/30/24 04:20 Calcium Level 9.0 mg/dL (8.7-10.4) Urinalysis Test 11/28/24 11:12 11/28/24 19:27 Urine Color Yellow (Yellow) Urine Clarity Turbid (Clear) H Urine pH 5.0 (5.0-9.0) Urine Specific [place] 1.020 (1.001-1.035) Urine Protein 1+ (Negative) H Urine Ketones Negative (Negative) Urine Blood Negative /uL (Negative) Urine Nitrite Negative (Negative) Urine Bilirubin Negative (Negative) Urine Urobilinogen 2 mg/dL (Negative) H Urine Leukocyte Esterase 3+ /uL (Negative) Urine RBC 11 /hpf (0 - 3) Urine WBC Clumps Present /hpf (None Seen) Urine Microscopic WBC 87 /HPF (0-3) H Urine Squamous Epithelial Cells Mod /hpf (<5) Urine Bacteria Few /hpf (None Seen) H Urine Hyaline Casts Mod /lpf (0 - 2) Urine Mucus Few (None Seen) Urine Glucose Normal mg/dL (Normal) Urine Creatinine 102.46 mg/dL (30.0-125.0) Urine Protein/Creatinine Ratio 0.33 Urine Sodium 72 mmol/L (40-220) Urine Total Protein 34.0 mg/dL (1-14) H Microbiology Microbiology Date/Time Source Procedure Growth Status 11/28/24 11:12 Voided Urine Urine Culture - Preliminary Resulted Labs and/or images reviewed: Labs reviewed by me, Image(s) reviewed by me Assessment/Plan Assessment/Plan Covering: #Acute hypoxic respiratory failure due to suspected aspiration pneumonia and suspected pulmonary congestion; now on RA; continue IV antibiotics; to keep NPO until further evaluation for swallowing; ordered and reviewed chest x-ray; continue monitoring #Acute toxic/metabolic encephalopathy in the setting of suspected sepsis and in the setting of Alzheimer's dementia; no behavioral changes; reviewed head CT; stopped home gabapentin and memantine; continue monitoring #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 as per the patient's daughter; no behavioral changes; continue aspirin and statin but to hold memantine; continue monitoring #Suspected sepsis due to suspected aspiration pneumonia; continue IV antibiotics; reviewed urinalysis and urine culture; continue monitoring #Status post mechanical fall; no fracture found; reviewed the available imaging studies; fall precautions; continue monitoring #ALEXUS in the setting of suspected sepsis; most likely vasomotor nephropathy; avoid nephrotoxic agents; continue monitoring #Hypernatremia; very mild; stable sodium level; encouraged to increase fluids intake; continue monitoring #Suspected aspiration pneumonia; reviewed chest x-ray; continue IV antibiotics; passed swallow evaluation: Soft mechanical diet; continue monitoring #Suspected pulmonary congestion; reviewed chest x-ray; continue IV diuretics; continue monitoring #Hypertensive kidney and heart disease; hold home losartan due to ALEXUS; resume the rest of home antihypertensive medications; continue monitoring #Diabetes mellitus type 2 with hemoglobin A1c of 6.8%; hold home antidiabetic medications; continue insulin sliding scale with hypoglycemia protocol; continue monitoring #Overweight; counseled the patient on the importance of adopting healthy lifestyle with diet and exercise order to lose weight; continue #MICHELLE; continue CPAP; continue monitoring This medical document was created using an electronic medical record system with computerized dictation system. Although this document has been carefully reviewed, there might still be some phonetic and typographical errors. These areas are purely typographical due to imperfections of the software programs, and do not reflect any compromise in the patient's medical care. Plan discussed with: Patient, Other (Nurse) My Orders Orders - INDIRA POOL MD Procedure Category Date Status Time Metoprolol Tartrate PHA 11/29/24 In Process Tablet (Lopressor Ta 22:00 Hydralazine Hcl PHA 11/29/24 In Process Tablet (Apresoline 14:00 Isosorbide PHA 11/30/24 In Process Mononitrate Tablet 10:00 Hydralazine Injection PHA 11/29/24 In Process (Apresoline Inject 13:30 Chest Xray 1 View XY 11/29/24 Resulted 16:00 Azithromycin 500mg/ PHA 11/30/24 In Process 250ml (Zithromax 50 10:00 Mechanical Soft Diet DIET 11/29/24 Transmitted Dinner Code Status CODE 11/29/24 Transmitted 22:33 Furosemide Injection PHA 11/30/24 In Process (Lasix Injection) 10:00 Date of Service: Nov 30, 2024 Billing Provider: INDIRA POOL MD Common Visit Codes: [id number] INP/OBS CARE(HIGH) INDIRA POOL MD Nov 30, 2024 09:14
[2024-11-30] MEDS: ENOXAPARIN SOD 40 MG/0.4 ML SYRINGE SC SCH (09:46)
[2024-11-30] MEDS: AZITHROMYCIN 500MG/ 250ML 250 ML IV SCH (09:46)
[2024-11-30] MEDS: ISOSORBIDE MONONITRATE ER 60 MG TAB PO SCH (09:47)
[2024-11-30] MEDS: FUROSEMIDE 40 MG/4 ML VIAL IV SCH (09:48)
[2024-11-30] MEDS: HYDROcodone-ACET 5/325MG TAB PO ONE (23:29)
[2024-12-01] VITALS (8 sets, daily range): BP systolic 129–161; BP diastolic 53–68; PULSE 60–81; RESP 15–17; TEMP 98–98.3; O2SAT 92–94
--- NOTE | 2024-12-01 05:14 | DVHPN2 ---
Subjective The patient was found choking by the nurse; Serbian-speaking; staff translated Reviewed: Care Plan, H&P, Labs, Medications, Previous Orders, Radiology Changes from previous H/P or p: Changes Objective Vitals Vital Signs Date Time Temp Pulse Resp B/P (MAP) Pulse Ox O2 Delivery O2 Flow Rate FiO2 12/01/24 01:00 98.3 60 17 152/62 (92) 94 98.3 11/30/24 20:00 Room Air* 0 N/A Nasal Cannula* Intake/Output Intake and Output 12/01/24 07:00 Intake Total 900 ml Output Total 400 ml Balance 500 ml Intake Oral 600 ml IV Total 300 ml Output Urine Total 400 ml General Appearance: Alert, Cooperative, No acute distress, Other (Oriented to self and person) HEENT: Atraumatic Lungs: Other (Decreased air entry bilateral with scattered crackles and wheezing) Cardiovascular: Regular rate, Normal S1, Normal S2 Abdomen: Normal bowel sounds, Soft, No tenderness Neuro: Normal speech, Cranial nerves 3-12 NL, Other (Oriented to self and person) Medications Current Medications Medications Dose Ordered Sig/Nolan Route Start Time Stop Time Status Last Admin Dose Admin Ceftriaxone Sodium 50 ml @ 100 mls/hr DAILY@09 IV 11/29/24 09:00 11/30/24 08:33 100 MLS/HR Diagnostic Test (Pha) 1 strip ACHS 11/28/24 17:00 11/30/24 22:24 1 STRIP Insulin Human Regular ACHS SC 11/28/24 17:00 11/30/24 22:23 3 UNITS Dextrose 50 ml UD PRN IV 11/28/24 15:45 Aspirin 81 mg DAILY PO 11/29/24 10:00 11/30/24 09:48 81 MG Atorvastatin Calcium 40 mg HS PO 11/28/24 22:00 11/30/24 22:22 40 MG Enoxaparin Sodium 40 mg DAILY SC 11/29/24 10:00 UNV Metoprolol Tartrate 50 mg BID PO 11/29/24 22:00 11/30/24 22:22 50 MG Hydralazine HCl 100 mg TID PO 11/29/24 14:00 11/30/24 22:23 100 MG Isosorbide Mononitrate 60 mg DAILY PO 11/30/24 10:00 11/30/24 09:47 60 MG Hydralazine HCl 10 mg Q6HP PRN IV 11/29/24 13:30 11/29/24 13:48 10 MG Enoxaparin Sodium 40 mg DAILY SC 11/30/24 10:00 11/30/24 09:46 40 MG Azithromycin 250 ml @ 125 mls/hr DAILY IV 11/30/24 10:00 11/30/24 09:46 125 MLS/HR Furosemide 40 mg DAILY IV 11/30/24 10:00 11/30/24 09:48 40 MG Laboratory Results Laboratory Tests 11/30/24 04:20 Urinalysis Test 11/28/24 11:12 11/28/24 19:27 Urine Color Yellow (Yellow) Urine Clarity Turbid (Clear) H Urine pH 5.0 (5.0-9.0) Urine Specific [place] 1.020 (1.001-1.035) Urine Protein 1+ (Negative) H Urine Ketones Negative (Negative) Urine Blood Negative /uL (Negative) Urine Nitrite Negative (Negative) Urine Bilirubin Negative (Negative) Urine Urobilinogen 2 mg/dL (Negative) H Urine Leukocyte Esterase 3+ /uL (Negative) Urine RBC 11 /hpf (0 - 3) Urine WBC Clumps Present /hpf (None Seen) Urine Microscopic WBC 87 /HPF (0-3) H Urine Squamous Epithelial Cells Mod /hpf (<5) Urine Bacteria Few /hpf (None Seen) H Urine Hyaline Casts Mod /lpf (0 - 2) Urine Mucus Few (None Seen) Urine Glucose Normal mg/dL (Normal) Urine Creatinine 102.46 mg/dL (30.0-125.0) Urine Protein/Creatinine Ratio 0.33 Urine Sodium 72 mmol/L (40-220) Urine Total Protein 34.0 mg/dL (1-14) H Microbiology Microbiology Date/Time Source Procedure Growth Status 11/28/24 11:12 Voided Urine Urine Culture - Final Complete Labs and/or images reviewed: Labs reviewed by me, Image(s) reviewed by me Assessment/Plan Assessment/Plan Covering: #Choking; witnessed by nurse; speech therapist was consulted to evaluate swallowing; aspiration precautions; ordered repeat chest x-ray; will delay discharge; continue monitoring #Acute hypoxic respiratory failure due to suspected aspiration pneumonia and suspected pulmonary congestion; resolved; now on RA; continue IV antibiotics; to keep NPO until further evaluation for swallowing; ordered repeat chest x-ray; continue monitoring #Acute toxic/metabolic encephalopathy in the setting of suspected sepsis and in the setting of Alzheimer's dementia; no behavioral changes; reviewed head CT; holding home gabapentin and memantine; continue monitoring #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 as per the patient's daughter; no behavioral changes; continue aspirin and statin but to hold memantine; continue monitoring #Suspected sepsis due to suspected aspiration pneumonia; continue IV antibiotics; reviewed urinalysis and urine culture; continue monitoring #Status post mechanical fall; no fracture found; reviewed the available imaging studies; fall precautions; physical therapy; continue monitoring #ALEXUS on suspected CKD in the setting of suspected sepsis; most likely vasomotor nephropathy; avoid nephrotoxic agents; continue monitoring #Hypernatremia; very mild; resolved with normalized sodium level; encouraged to increase fluids intake; continue monitoring #Suspected aspiration pneumonia; ordered repeat chest x-ray; continue IV antibiotics; to keep NPO until further swallow evaluation; continue monitoring #Suspected pulmonary congestion; reviewed initial chest x-ray but ordered repeat chest x-ray as above; continue IV diuretics; continue monitoring #Hypertensive kidney and heart disease; continue holding home losartan due to ALEXUS; continue the rest of home antihypertensive medications; continue monitoring #Diabetes mellitus type 2 with hemoglobin A1c of 6.8%; continue holding home antidiabetic medications; continue insulin sliding scale with hypoglycemia protocol; continue monitoring #Overweight; counseled the patient on the importance of adopting healthy lifestyle with diet and exercise order to lose weight; continue #MICHELLE; continue CPAP; continue monitoring Late entry This medical document was created using an electronic medical record system with computerized dictation system. Although this document has been carefully reviewed, there might still be some phonetic and typographical errors. These areas are purely typographical due to imperfections of the software programs, and do not reflect any compromise in the patient's medical care. Plan discussed with: Patient, Other (Nurse) My Orders Orders - INDIRA POOL MD Procedure Category Date Status Time Basic Metabolic Panel LAB 12/01/24 Logged 04:00 * Editor Managing Director CONS 11/30/24 Transmitted Consult Date of Service: Dec 01, 2024 Billing Provider: INDIRA POOL MD Common Visit Codes: [id number] INP/OBS CARE(HIGH) INDIRA POOL MD Dec 01, 2024 05:14
[2024-12-01 07:00] LABS: Potassium 3.8 mmol/L (3.5-5.1); Sodium 144 mmol/L (136-145)
[2024-12-01 07:01] LABS: Anion Gap 9 (5-15); Calcium 8.8 mg/dL (8.7-10.4); Carbon Dioxide 27 mmol/L (20-31)
[2024-12-01 07:03] LABS: Chloride 108 mmol/L (98-107)
[2024-12-01 07:06] LABS: BUN/Creatinine Ratio 17.9 (10.0-20.0); Blood Urea Nitrogen 22 mg/dL (9-23)
[2024-12-01 07:08] LABS: Glucose 122 mg/dL (74-106)
--- NOTE | 2024-12-01 14:52 | DVH ---
CHEST RADIOGRAPH Indication: Suspected aspiration during eating. Thank You! Technique: Single frontal view of the chest was obtained Comparison: XY CHEST XRAY 1 VIEW on DOS: 11/29/24, XY CHEST PORTABLE on DOS: 04/11/24 FINDINGS: Lines and Tubes: Left pacemaker Lungs: Left basilar atelactacsis. Pleura: No effusion. No pneumothorax. Cardiomediastinal contours: Unremarkable Bones: No acute osseous abnormality. IMPRESSION: Left basilar atelactacsis.
[2024-12-02 01:00] VITALS: BP 141/56; PULSE 59; RESP 16; TEMP 98; O2SAT 97
[2024-12-02 05:00] VITALS: BP 128/57; PULSE 60; RESP 16; TEMP 97.5; O2SAT 92
--- NOTE | 2024-12-02 06:14 | DVHPN2 ---
Subjective Did not share any complaints; Croatian-speaking; staff translated Reviewed: Care Plan, H&P, Labs, Medications, Previous Orders, Radiology Changes from previous H/P or p: Changes Objective Vitals Vital Signs Date Time Temp Pulse Resp B/P (MAP) Pulse Ox O2 Delivery O2 Flow Rate FiO2 12/02/24 05:00 97.5 60 16 128/57 (80) 92 97.5 12/01/24 20:00 Room Air* 0 N/A Nasal Cannula* Intake/Output Intake and Output 12/02/24 07:00 Intake Total 940 ml Output Total 600 ml Balance 340 ml Intake Oral 940 ml Output Urine Total 600 ml # Voids 5 # Bowel Movements 1 General Appearance: Alert, Cooperative, No acute distress, Other (Oriented to self and person) HEENT: Atraumatic Lungs: Other (Decreased air entry bilateral with scattered crackles and wheezing) Cardiovascular: Regular rate, Normal S1, Normal S2 Abdomen: Normal bowel sounds, Soft, No tenderness Neuro: Normal speech, Cranial nerves 3-12 NL Medications Current Medications Medications Dose Ordered Sig/[place]olan Route Start Time Stop Time Status Last Admin Dose Admin Ceftriaxone Sodium 50 ml @ 100 mls/hr DAILY@09 IV 11/29/24 09:00 12/01/24 08:43 100 MLS/HR Diagnostic Test (Pha) 1 strip ACHS 11/28/24 17:00 12/01/24 22:11 1 STRIP Insulin Human Regular ACHS SC 11/28/24 17:00 12/01/24 22:11 2 UNITS Dextrose 50 ml UD PRN IV 11/28/24 15:45 Aspirin 81 mg DAILY PO 11/29/24 10:00 12/01/24 09:40 81 MG Atorvastatin Calcium 40 mg HS PO 11/28/24 22:00 12/01/24 22:02 40 MG Enoxaparin Sodium 40 mg DAILY SC 11/29/24 10:00 UNV Metoprolol Tartrate 50 mg BID PO 11/29/24 22:00 12/01/24 22:02 50 MG Hydralazine HCl 100 mg TID PO 11/29/24 14:00 12/01/24 22:02 100 MG Isosorbide Mononitrate 60 mg DAILY PO 11/30/24 10:00 12/01/24 09:39 60 MG Hydralazine HCl 10 mg Q6HP PRN IV 11/29/24 13:30 11/29/24 13:48 10 MG Enoxaparin Sodium 40 mg DAILY SC 11/30/24 10:00 12/01/24 09:40 40 MG Azithromycin 250 ml @ 125 mls/hr DAILY IV 11/30/24 10:00 12/01/24 09:39 125 MLS/HR Furosemide 40 mg DAILY IV 11/30/24 10:00 12/01/24 09:45 40 MG Laboratory Results Laboratory Tests 11/30/24 04:20 12/01/24 06:27 Chemistry Test 12/01/24 06:27 Calcium Level 8.8 mg/dL (8.7-10.4) Urinalysis Test 11/28/24 11:12 11/28/24 19:27 Urine Color Yellow (Yellow) Urine Clarity Turbid (Clear) H Urine pH 5.0 (5.0-9.0) Urine Specific [place] 1.020 (1.001-1.035) Urine Protein 1+ (Negative) H Urine Ketones Negative (Negative) Urine Blood Negative /uL (Negative) Urine Nitrite Negative (Negative) Urine Bilirubin Negative (Negative) Urine Urobilinogen 2 mg/dL (Negative) H Urine Leukocyte Esterase 3+ /uL (Negative) Urine RBC 11 /hpf (0 - 3) Urine WBC Clumps Present /hpf (None Seen) Urine Microscopic WBC 87 /HPF (0-3) H Urine Squamous Epithelial Cells Mod /hpf (<5) Urine Bacteria Few /hpf (None Seen) H Urine Hyaline Casts Mod /lpf (0 - 2) Urine Mucus Few (None Seen) Urine Glucose Normal mg/dL (Normal) Urine Creatinine 102.46 mg/dL (30.0-125.0) Urine Protein/Creatinine Ratio 0.33 Urine Sodium 72 mmol/L (40-220) Urine Total Protein 34.0 mg/dL (1-14) H Microbiology Microbiology Date/Time Source Procedure Growth Status 11/28/24 11:12 Voided Urine Urine Culture - Final Complete Labs and/or images reviewed: Labs reviewed by me, Image(s) reviewed by me Assessment/Plan Assessment/Plan Covering: An 84-year-old male patient; with multiple comorbidities; who presented to the emergency department with confusion/altered mental status. #Moderate dysphagia causing choking; evaluated by speech therapist; diet to be pureed with thin liquids; reviewed repeat chest x-ray; aspiration precautions; instructed to adhere to pureed diet with thin liquids upon discharge; to follow up with the primary care provider or discharge clinic within one week #Acute hypoxic respiratory failure due to suspected aspiration pneumonia and suspected pulmonary congestion; resolved; now on RA; received IV antibiotics and IV diuresis; reviewed chest x-rays; to follow up with the primary care provider or discharge clinic within one week #Acute toxic/metabolic encephalopathy in the setting of suspected sepsis and in the setting of Alzheimer's dementia; no behavioral changes; reviewed head CT; home gabapentin and memantine with donepezil held during hospitalization; back to baseline mental status; to resume home medications upon discharge; to follow up with the primary care provider or discharge clinic within one week #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 as per the patient's daughter; no behavioral changes; was on aspirin and statin during hospitalization; to resume home aspirin, statin along with home Alzheimer's dementia medications; to follow up with primary care provider within one week or with discharge clinic within one week #Suspected sepsis due to suspected aspiration pneumonia; received IV antibiotics; reviewed urinalysis and urine culture; reviewed chest x-rays; to follow up with primary care provider within one week or with discharge clinic within one week #Status post mechanical fall; no fracture found; reviewed the available imaging studies; fall precautions; to follow up with primary care provider within one week or with discharge clinic within one week #ALEXUS on suspected CKD in the setting of suspected sepsis; most likely vasomotor nephropathy; avoid nephrotoxic agents; resolving;to follow up with primary care provider within one week or with discharge clinic within one week #Hypernatremia; very mild; resolved with normalized sodium level; encouraged to increase fluids intake;to follow up with primary care provider within one week or with discharge clinic within one week #Suspected aspiration pneumonia; details as above; to follow up with primary care provider within one week or with discharge clinic within one week #Suspected pulmonary congestion; reviewed chest x-rays; received IV diuretics; to follow up with primary care provider within one week or with discharge clinic within one week #Hypertensive kidney and heart disease; home losartan held during hospitalization due to ALEXUS; resume home antihypertensive medications including losartan upon discharge; to follow up with primary care provider within one week or with discharge clinic within one week #Diabetes mellitus type 2 with hemoglobin A1c of 6.8%; home antidiabetic medications held during hospitalization; was on insulin sliding scale with hypoglycemia protocol; resume home antidiabetic medications; to follow up with primary care provider within one week or with discharge clinic within one week #Obesity; counseled the patient on the importance of adopting healthy lifestyle with diet and exercise order to lose weight; ; to follow up with primary care provider within one week or with discharge clinic within one week #MICHELLE; continue CPAP; ; to follow up with primary care provider within one week or with discharge clinic within one week Late entry This medical document was created using an electronic medical record system with computerized dictation system. Although this document has been carefully reviewed, there might still be some phonetic and typographical errors. These areas are purely typographical due to imperfections of the software programs, and do not reflect any compromise in the patient's medical care. Plan discussed with: Patient, Other (Nurse) My Orders Orders - INDIRA POOL MD Procedure Category Date Status Time Mechanical Soft Diet DIET 12/01/24 Transmitted Lunch * Swallow Request ST 12/01/24 Transmitted 12:35 Chest Xray 1 View XY 12/01/24 Resulted 13:41 Pureed DIET 12/01/24 Transmitted Dinner Date of Service: Dec 02, 2024 Billing Provider: INDIRA POOL MD Common Visit Codes: [id number] INP/OBS CARE(MOD) INDIRA POOL MD Dec 02, 2024 06:14
[2024-12-02 08:04] VITALS: RESP 16; O2SAT 93
--- NOTE | 2024-12-02 10:28 | DVHDS2 ---
Discharge Summary Date of Admission Nov 28, 2024 at 15:06 Date of Discharge: Dec 02, 2024 Admitting Diagnosis Confusion/altered mental Labs/Diagnostic Data: Laboratory Results Test 12/02/24 06:15 12/01/24 06:27 11/30/24 04:20 11/29/24 06:06 POC Glucose 113 mg/dl (70-106) Sodium Level 144 mmol/L (136-145) Potassium Level 3.8 mmol/L (3.5-5.1) Chloride Level 108 mmol/L (98-107) Carbon Dioxide Level 27 mmol/L (20-31) Anion Gap 9 (5-15) Blood Urea Nitrogen 22 mg/dL (9-23) Creatinine 1.23 mg/dL (0.700-1.30) Glomerular Filtration Rate Calc 59 mL/min (>90) BUN/Creatinine Ratio 17.9 (10.0-20.0) Serum Glucose 122 mg/dL (74-106) Calcium Level 8.8 mg/dL (8.7-10.4) White Blood Count 7.6 10^3/uL (4.4-10.8) Red Blood Count 3.90 10^6/uL (4.5-5.90) Hemoglobin 12.9 g/dL (13.5-17.5) Hematocrit 38.6 % (41.0-53.0) Mean Corpuscular Volume 98.9 fL (80.0-100.0) Mean Corpuscular Hemoglobin 33.2 pg (28.0-32.0) Mean Corpuscular Hemoglobin Concent 33.5 g/dL (32.0-36.0) Red Cell Distribution Width 13.7 % (11.8-14.3) Platelet Count 183 10^3/uL (140-450) Mean Platelet Volume 8.5 fL (6.9-10.8) Neutrophils (%) (Auto) 71.5 % (37.0-80.0) Lymphocytes (%) (Auto) 16.9 % (10.0-50.0) Monocytes (%) (Auto) 8.2 % (0.0-12.0) Eosinophils (%) (Auto) 2.8 % (0.0-7.0) Basophils (%) (Auto) 0.6 % (0.0-2.0) Neutrophils # (Auto) 5.4 10 ^3/uL (1.6-8.6) Lymphocytes # (Auto) 1.3 10 ^3/uL (0.4-5.4) Monocytes # (Auto) 0.6 10 ^3/uL (0-1.3) Eosinophils # (Auto) 0.2 10 ^3/uL (0-0.8) Basophils # (Auto) 0 10 ^3/uL (0-0.2) Nucleated Red Blood Cells 0.1 % Total Bilirubin 0.7 mg/dL (0.2-1.0) Aspartate Amino Transferase (AST) 13 U/L (13-40) Alanine Aminotransferase (ALT) 18 U/L (7-40) Alkaline Phosphatase 106 U/L (46-116) Total Protein 5.7 g/dL (5.7-8.2) Albumin 3.5 g/dL (3.2-4.8) Test 11/28/24 19:27 11/28/24 16:22 11/28/24 11:12 11/28/24 11:00 Urine Creatinine 102.46 mg/dL (30.0-125.0) Urine Protein/Creatinine Ratio 0.33 Urine Sodium 72 mmol/L (40-220) Urine Total Protein 34.0 mg/dL (1-14) Urine Opiates Screen Neg (NEGATIVE) Urine Fentanyl Screen Neg (NEGATIVE) Urine Barbiturates Screen Neg (NEGATIVE) Urine Phencyclidine Screen Neg (NEGATIVE) Urine Amphetamines Screen Neg (NEGATIVE) Urine Benzodiazepines Screen Neg (NEGATIVE) Urine Cocaine Screen Neg (NEGATIVE) Urine Cannabinoids Screen Neg (NEGATIVE) Prothrombin Time 10.6 sec (9.3-11.8) Prothrombin Time INR 1.00 (0.9-1.15) Activated Partial Thromboplast Time 29.3 SEC (24.5-34.5) Troponin I High Sensitivity 8 ng/L (</=54) Urine Color Yellow (Yellow) Urine Clarity Turbid (Clear) Urine pH 5.0 (5.0-9.0) Urine Specific [place] 1.020 (1.001-1.035) Urine Protein 1+ (Negative) Urine Ketones Negative (Negative) Urine Blood Negative /uL (Negative) Urine Nitrite Negative (Negative) Urine Bilirubin Negative (Negative) Urine Urobilinogen 2 mg/dL (Negative) Urine Leukocyte Esterase 3+ /uL (Negative) Urine RBC 11 /hpf (0 - 3) Urine WBC Clumps Present /hpf (None Seen) Urine Microscopic WBC 87 /HPF (0-3) Urine Squamous Epithelial Cells Mod /hpf (<5) Urine Bacteria Few /hpf (None Seen) Urine Hyaline Casts Mod /lpf (0 - 2) Urine Mucus Few (None Seen) Urine Glucose Normal mg/dL (Normal) Hemoglobin A1c 6.8 % A1C (<5.7) Magnesium Level 1.9 mg/dL (1.6-2.6) Direct Bilirubin 0.3 mg/dL (<0.3) B-Type Natriuretic Peptide 68.92 pg/mL (0-100) Vitamin B12 Level 519 pg/mL (211-911) Vitamin D 25-Hydroxy 36.4 ng/mL (30.0-100) Thyroid Stimulating Hormone (TSH) 1.74 uIU/mL (0.55-4.78) Other Laboratory Tests 12/01/24 06:27 11/30/24 04:20 Brief Hx & Hospital Course: Covering: An 84-year-old male patient; with multiple comorbidities; who presented to the emergency department with confusion/altered mental status. #Moderate dysphagia causing choking; evaluated by speech therapist; diet to be pureed with thin liquids; reviewed repeat chest x-ray; aspiration precautions; instructed to adhere to pureed diet with thin liquids upon discharge; to follow up with the primary care provider or discharge clinic within one week #Acute hypoxic respiratory failure due to suspected aspiration pneumonia and suspected pulmonary congestion; resolved; now on RA; received IV antibiotics and IV diuresis; reviewed chest x-rays; to follow up with the primary care provider or discharge clinic within one week #Acute toxic/metabolic encephalopathy in the setting of suspected sepsis and in the setting of Alzheimer's dementia; no behavioral changes; reviewed head CT; home gabapentin and memantine with donepezil held during hospitalization; back to baseline mental status; to resume home medications upon discharge; to follow up with the primary care provider or discharge clinic within one week #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 as per the patient's daughter; no behavioral changes; was on aspirin and statin during hospitalization; to resume home aspirin, statin along with home Alzheimer's dementia medications; to follow up with primary care provider within one week or with discharge clinic within one week #Suspected sepsis due to suspected aspiration pneumonia; received IV antibiotics; reviewed urinalysis and urine culture; reviewed chest x-rays; to follow up with primary care provider within one week or with discharge clinic within one week #Status post mechanical fall; no fracture found; reviewed the available imaging studies; fall precautions; to follow up with primary care provider within one week or with discharge clinic within one week #ALEXUS on suspected CKD in the setting of suspected sepsis; most likely vasomotor nephropathy; avoid nephrotoxic agents; resolving;to follow up with primary care provider within one week or with discharge clinic within one week #Hypernatremia; very mild; resolved with normalized sodium level; encouraged to increase fluids intake;to follow up with primary care provider within one week or with discharge clinic within one week #Suspected aspiration pneumonia; details as above; to follow up with primary care provider within one week or with discharge clinic within one week #Suspected pulmonary congestion; reviewed chest x-rays; received IV diuretics; to follow up with primary care provider within one week or with discharge clinic within one week #Hypertensive kidney and heart disease; home losartan held during hospitalization due to ALEXUS; resume home antihypertensive medications including losartan upon discharge; to follow up with primary care provider within one week or with discharge clinic within one week #Diabetes mellitus type 2 with hemoglobin A1c of 6.8%; home antidiabetic medications held during hospitalization; was on insulin sliding scale with hypoglycemia protocol; resume home antidiabetic medications; to follow up with primary care provider within one week or with discharge clinic within one week #Obesity; counseled the patient on the importance of adopting healthy lifestyle with diet and exercise order to lose weight; ; to follow up with primary care provider within one week or with discharge clinic within one week #MICHELLE; continue CPAP; ; to follow up with primary care provider within one week or with discharge clinic within one week Late entry This medical document was created using an electronic medical record system with computerized dictation system. Although this document has been carefully reviewed, there might still be some phonetic and typographical errors. These areas are purely typographical due to imperfections of the software programs, and do not reflect any compromise in the patient's medical care. Condition at Discharge: Stable Final Diagnosis/Problems List #Acute hypoxic respiratory failure due to suspected aspiration pneumonia and suspected pulmonary congestion #Acute toxic/metabolic encephalopathy in the setting of suspected sepsis and in the setting of Alzheimer's dementia #Suspected sepsis due to suspected aspiration pneumonia #Moderate dysphagia Rest of diagnoses as above Discharge Disposition: Home Discharge Instruct/Medications Diet: Consistent carbohydrate, Cardiac 2g Na,low cholest, See Comment Diet comment: Pureed with thin liquids Activity: No Restrictions, As Tolerated Follow Up/Referral: To follow up with the primary care provider or with discharge clinic within one week Medications: To resume home medications Discharge Statement: "Patient was advised to return to the ER or call 911 if any headaches, dizziness, shortness of breath, chest pain, abdominal pain, bleeding, fevers, or worsening of medical condition. Patient was counseled about treatment plan, medications, possible side effects, patientverbalized understanding. All questions were answered to the best of my ability. This discharge took greater then 30 minutes in planning, reviewing documentation, counseling the patient, and discussing with other team members." Date of Service: Dec 02, 2024 Billing Provider: INDIRA POOL MD Common Visit Codes: [id number] DISCH DAY >30min INDIRA POOL MD Dec 02, 2024 10:28
[2024-12-02 10:44] VITALS: BP 156/65; PULSE 79; TEMP 36.4
== END 2024-12-02 13:25 | disposition home or self-care (01) | DRG 91 ==
LOC: ER 10:16 → OVERFLOW 15:06 → WEST WING 15:07
PROVIDERS: ADMIT Internal Medicine; ATTEND Internal Medicine
DX: G92.8 Other toxic encephalopathy (principal); J69.0 Pneumonitis due to inhalation of food and vomit; J96.01 Acute respiratory failure with hypoxia; N17.0 Acute kidney failure with tubular necrosis; E87.0 Hyperosmolality and hypernatremia; N30.00 Acute cystitis without hematuria; R13.10 Dysphagia, unspecified; G30.9 Alzheimer's disease, unspecified; E11.22 Type 2 diabetes mellitus with diabetic chronic kidney disease; E66.9 Obesity, unspecified; I13.10 Hypertensive heart and chronic kidney disease without heart failure, with stage 1 through stage 4 chronic kidney disease, or unspecified chronic kidney disease; F02.80 Dementia in other diseases classified elsewhere, unspecified severity, without behavioral disturbance, psychotic disturbance, mood disturbance, and anxiety; I25.10 Atherosclerotic heart disease of native coronary artery without angina pectoris; E78.5 Hyperlipidemia, unspecified; N40.0 Benign prostatic hyperplasia without lower urinary tract symptoms; Z68.29 Body mass index [BMI] 29.0-29.9, adult; M54.50 Low back pain, unspecified; N18.2 Chronic kidney disease, stage 2 (mild); S70.02XA Contusion of left hip, initial encounter; S70.01XA Contusion of right hip, initial encounter; Z86.73 Personal history of transient ischemic attack (TIA), and cerebral infarction without residual deficits; W18.39XA Other fall on same level, initial encounter; Y93.89 Activity, other specified; Y92.89 Other specified places as the place of occurrence of the external cause; Y99.8 Other external cause status
CPT/HCPCS: 36415; 70450; 71045; 72131; 73502; 80048; 80053; 80076; 80307; 81001; 82306; 82570; 82607; 82962; 83036; 83735; 83880; 84156; 84300; 84443; 84484; 85025; 85610; 85730; 87086; 92610; 96361; 96365; 97110; 97116; 97162; 97530; G0378; J1815

== ENCOUNTER 2025-07-03 10:02 | Outpatient (CLI) | payer MEDICARE, OTHER ==
[~2025-07-03] VITALS: Ht 167.6 cm; Wt 77.1 kg
[~2025-07-03 10:02] MED LIST changes: -AZITTAB PO; -CEFP200T15 PO; -DILT120T16 PO
[2025-07-03] MEDS ORDERED: ADENOSINE 90 MG/30 ML INJ IV ONE (10:55)
[2025-07-03] MEDS ORDERED: ADENOSINE 65 MG in GIVE UN-DILUTED 0 ML IV ONE (12:15)
== END 2025-07-03 17:00 | disposition home or self-care (01) ==
LOC: Rad HDHVI 10:02
PROVIDERS: ATTEND Internal Medicine Cardiovascular Disease
DX: Z13.6 Encounter for screening for cardiovascular disorders (principal); I49.3 Ventricular premature depolarization; I11.0 Hypertensive heart disease with heart failure; I50.9 Heart failure, unspecified; E11.9 Type 2 diabetes mellitus without complications; I48.91 Unspecified atrial fibrillation; E78.00 Pure hypercholesterolemia, unspecified; Z95.0 Presence of cardiac pacemaker
CPT/HCPCS: 78452; 93017; A9500; J0153